=== PATIENT | female | born 1945 | race African-American/Black ===

== ENCOUNTER 2017-03-14 06:27 | Day surgery (SDC) | payer MEDICARE ==
--- NOTE | ~2017-03-14 | EGD ---
EGD REPORT [facility] [address] [place] [address] NAME: EMILY RUIZ : [birth year] STATUS : REG [facility]#: [id number] AGE: 72 ADM/REG DATE : 03/14/17 MR#: [id number] REPORT SERV DATE: 03/14/17 DICTATED BY: DEAN MORRIS DATE: 03/14/17 REPORT STATUS : Draft [facility]: [facility] DATE: 03/14/17 [facility] Patient Name: Emily Ruiz. Date of : 1945 Attending MD: DEAN MORRIS MD Procedure Date No Time: 03/14/2017 Procedure: Colonoscopy Indications: High risk colon cancer surveillance: Personal history of colonic polyps; last exam 2008. Patient Profile: Informed consent was obtained from the patient by me prior to the procedure. Risks, benefits, and alternatives were discussed including the risk of bleeding, perforation, infection, reaction to medicine, missed lesion, and cardiopulmonary complications. Referring MD: MUSHTAQ CARTER Medicines: Monitored Anesthesia Care Complications: No immediate complications. Procedure: Pre-Anesthesia Assessment: - ASA Grade Assessment: III - A patient with severe systemic disease. After I obtained informed consent, the scope was passed under direct vision. Throughout the procedure, the patient's blood pressure, pulse, and oxygen saturations were monitored continuously. The PCF [id number] was introduced through the anus and advanced to the cecum, identified by the ileocecal valve. The colonoscope was slowly withdrawn with careful examination all mucosal surfaces including specific attention around flexures and tip deflection behind folds; retroflexion performed in rectum. The colonoscopy was performed without difficulty. The patient tolerated the procedure well. The quality of the bowel preparation was adequate except small part DC which had retained solid debris; base of cecum also not well seen. The rectum was photographed. Findings: A sessile polyp was found in the transverse colon. The polyp was 5 mm in size. The polyp was removed with a cold biopsy forceps. Resection and retrieval were complete. Impression: - One 5 mm polyp in the transverse colon. Resected and retrieved. Recommendation: - Regular diet. - Patient has a contact number available for EGD REPORT [address] [address] NAME: EMILY RUIZ : [birth year] STATUS : REG [facility] PAT#: [id number] AGE: 72 ADM/REG DATE : 03/14/17 MR#: [id number] REPORT SERV DATE: 03/14/17 DICTATED BY: DEAN MORRIS DATE: 03/14/17 REPORT STATUS : Draft TRANSCRIBED BY: [employer] DATE: 03/14/17 emergencies. The signs and symptoms of potential delayed complications were discussed with the patient. Return to normal activities tomorrow. Written discharge instructions were provided to the patient. - Continue present medications. - Await pathology results. - Repeat colonoscopy for surveillance based on pathology results. - Schd DCBE re: h/o polyps, to view cecum. Procedure Code(s): --- Professional --- 86769, Colonoscopy, flexible, proximal to splenic flexure; with biopsy, single or multiple Diagnosis Code(s): --- Professional --- D12.3, Benign neoplasm of transverse colon Z86.010, Personal history of colonic polyps CPT copyright 2013 [employer]. All rights reserved. The codes documented in this report are preliminary and upon curtain supervisor review may be revised to meet current compliance requirements. DEAN MORRIS MD 03/14/2017 9:05 AM This report has been signed electronically. Number of Addenda: 0 Note Initiated On: 03/14/2017 8:37 AM [address] [address]
[~2017-03-14 06:27] MED LIST: ALLEGRA180 PO; ASAB PO; B COMPLETE PO; DIOVAN HC1 PO; FERROUS SULF325 M1 PO; GLUCPH PO; ISOSORB DIN30 MG PO; LIPITOR40 PO; LOP100 PO; NEUR300 PO; PAXIL40 MG PO; PRILO PO; SINGULAIR1; VITC500 PO; WELL100 PO
== END 2017-03-14 23:59 | disposition home or self-care (01) ==
LOC: DMU 06:27
PROVIDERS: Internal Medicine Gastroenterology
PROC: 0DBL8ZZ Excision of Transverse Colon, Via Natural or Artificial Opening Endoscopic (ICD-10-PCS; principal; 2017-03-14 07:30)
DX: Z12.11 Encounter for screening for malignant neoplasm of colon (principal); D12.3 Benign neoplasm of transverse colon; I10 Essential (primary) hypertension; I25.10 Atherosclerotic heart disease of native coronary artery without angina pectoris; G47.33 Obstructive sleep apnea (adult) (pediatric); M79.7 Fibromyalgia; K21.9 Gastro-esophageal reflux disease without esophagitis; E11.9 Type 2 diabetes mellitus without complications; E78.00 Pure hypercholesterolemia, unspecified; Z98.41 Cataract extraction status, right eye; Z86.010 Personal history of colon polyps; Z98.42 Cataract extraction status, left eye; Z96.1 Presence of intraocular lens; Z95.5 Presence of coronary angioplasty implant and graft; Z90.710 Acquired absence of both cervix and uterus; Z99.89 Dependence on other enabling machines and devices; Z87.891 Personal history of nicotine dependence; Z88.0 Allergy status to penicillin; Z79.84 Long term (current) use of oral hypoglycemic drugs; Z79.899 Other long term (current) drug therapy; Z79.82 Long term (current) use of aspirin
CPT/HCPCS: 82962; 88305